=== PATIENT | male | born 1955 | race African-American/Black ===

== ENCOUNTER 2018-04-13 13:43 | Emergency (ER) | payer OTHER, SELFPAY ==
--- OUTSIDE RECORDS SUMMARY | 2018-04-13 13:48 | XMS REPORT | Clinical Summary ---
:1955 Author Organization [facility] Address [address] [place] [address] Care Team Providers Name Role Phone Nadine Andrade MD Primary Care Provider Allergies No Known Allergies Medications Medication Sig Dispensed Refills Start Date End Date Status lisinopril Take 10 mg by mouth 0 Active (PRINIVIL,ZESTRIL) daily. 10 mg tablet citalopram Take 40 mg by mouth 0 Active (CeleXA) 40 MG daily. tablet metFORMIN Take 1,000 mg by 0 Active (GLUCOPHAGE) 1,000 mouth 2 (two) times mg tablet a day with meals. insulin detemir Inject 50 Units 0 Active (LEVEMIR) 100 under the skin unit/mL injection daily with breakfast. insulin asp Inject 30 Units 0 Active prt-insulin ASPART under the skin. (NovoLOG 70/30) 100 unit/mL (70-30) injection aspirin (ECOTRIN) Take 81 mg by mouth 0 Active 81 MG enteric daily. coated tablet celecoxib Take 200 mg by 0 Active (CeleBREX) 200 MG mouth 2 (two) times capsule a day. gabapentin Take 600 mg by 0 Active (NEURONTIN) 600 mg mouth 3 (three) tablet times a day. acetaminophen-code Take 1 tablet by 0 Active ine (TYLENOL WITH mouth every 4 CODEINE #4) 300-60 (four) hours as mg per tablet needed for moderate pain. ibuprofen Take 1 tablet by 0 01/04/2017 Active (ADVIL,MOTRIN) 800 mouth as needed. MG tablet ANDROGEL 20.[address] Place 1 application 0 01/07/2017 Active mg/1.25 gram (1.62 on the skin daily. %) gel in metered-dose pump NOVOFINE 30 30 Inject 1 Box under 0 11/08/2016 Active gauge x 1/3" the skin as needed. needle traMADol (ULTRAM) Take 1 tablet (50 50 tablet 0 03/30/2017 04/29/2017 50 mg tablet mg total) by mouth every 6 (six) hours as needed for moderate pain for up to 30 days. HYDROcodone-acetam Take 1 tablet by 40 tablet 0 03/30/2017 04/18/2017 inophen (NORCO) mouth every 4 5-325 mg per (four) hours as tablet needed for severe pain for up to 19 days. WC injury Max Daily Amount: 6 tablets Active Problems No known active problems Encounters Date Type Specialty Care Team Description 11/30/2017 Office Visit Orthopedic Surgery Oli Saavedra, Atrophy of quadriceps MD femoris muscle (Primary Dx) 11/21/2017 Telephone Orthopedic Surgery Dora Betts MA 11/16/2017 Telephone Orthopedic Surgery Dora Betts MA 11/02/2017 Office Visit Orthopedic Surgery Oli Saavedra, Atrophy of quadriceps MD femoris muscle (Primary Dx) 10/25/2017 Telephone Orthopedic Surgery Dora Betts MA 09/13/2017 Telephone Orthopedic Surgery Lydia Mas MA 06/27/2017 Office Visit Orthopedic Surgery Oli Saavedra, Rupture of left MD quadriceps muscle, subsequent encounter (Primary Dx) 05/30/2017 Office Visit Orthopedic Surgery Oli Saavedra, Rupture of left MD quadriceps muscle, subsequent encounter (Primary Dx) 05/02/2017 Office Visit Orthopedic Surgery Oli Saavedra, Rupture of left MD quadriceps muscle, subsequent encounter (Primary Dx) after 04/12/2017 Family History Medical History Relation Name Comments Diabetes Father Kidney disease Mother Cancer Other siblingsX2 No Known Problems Other children Relation Name Status Comments Father Mother Other siblingsX2 Other children Alive Social History Tobacco Use Types Packs/Day Years Used Date Never Smoker Smokeless Tobacco: Never Used Alcohol Use Drinks/Week oz/Week Comments No Sex Assigned at Date Recorded Not on file Job Start Date Occupation Industry Not on file Not on file Not on file Travel History Travel Start Travel End No recent travel history available. Last Filed Vital Signs Vital Sign Reading Time Taken Blood Pressure - - Pulse - - Temperature - - Respiratory Rate - - Oxygen Saturation - - Inhaled Oxygen Concentration - - Weight 103 kg (226 lb) 11/30/2017 8:59 AM CDT Height 175.3 cm (5' 9") 11/30/2017 8:59 AM CDT Body Mass Index 33.37 11/30/2017 8:59 AM CDT Plan of Treatment Health Maintenance Due Date Last Done Comments COLON CANCER SCREENING 12/06/2005 SHINGLES VACCINES (1 of 2) 12/06/2005 INFLUENZA VACCINE 09/27/2017 Results Not on fileafter 04/12/2017 Insurance Payer Benefit Plan / Group Subscriber ID Type Phone Address [employer] [facility] [id number] [employer] Lance Machado Jr. Personal/Family Self 1955 [facility] [address] ([place]) [place] [address] Advance Directives Patient has advance care planning documents on file. For more information, please contact:Gee Sheehan[address] [place] [address]
[2018-04-13] MEDS ORDERED: ONDANSETRON 4 MG/2 ML VIAL ONE (14:15)
[2018-04-13] MEDS ORDERED: TETANUS & DIPHTHERIA TOX,ADULT 0.5 ML VIAL ONE (14:15)
[2018-04-13] MEDS ORDERED: FENTANYL CITR 100 MCG/2 ML ONE ×2 (14:15→16:26)
[2018-04-13 14:28] LABS: Absolute Lymphocytes (CBC) 1.6 K/uL (0.7-4.9); Absolute Monocytes 0.5 K/uL (0.1-1.3); Absolute Neutrophil 3.1 K/uL (1.8-8.0); Basophils % 0.6 % (0-1.3); Lymphocytes % 29.7 % (15.3-44.8); MPV 9.3 fL (7.6-11.3); Monocytes % 8.7 % (3.3-12.3); RBC Red Blood Cell Count 5.21 M/uL (4.33-5.43)
[2018-04-13 14:44] LABS: Potassium 3.9 mmol/L (3.5-5.1)
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
== END 2018-04-13 16:40 | disposition short-term general hospital (02) ==
LOC: ER 13:43
DX: T24.201A Burn of second degree of unspecified site of right lower limb, except ankle and foot, initial encounter (principal); X03.0XXA Exposure to flames in controlled fire, not in building or structure, initial encounter; Y93.89 Activity, other specified; Y92.89 Other specified places as the place of occurrence of the external cause; Z91.018 Allergy to other foods
CPT/HCPCS: 36415; 80048; 85025; 90714; 96374; 96375; 99285; J2405; J3010